=== PATIENT | female | born 1975 | race Asian ===

== ENCOUNTER 2018-09-14 00:47 | Emergency (ER) | payer SELFPAY ==
[~2018-09-14] VITALS: Ht 165.1 cm; Wt 59.9 kg
[2018-09-14 00:47] VITALS: BP 155/75
--- NOTE | 2018-09-14 05:04 | PHYS DOC ---
Past Medical History Past Medical History: Bipolar Past Surgical History: Cholecystectomy, Hysterectomy, Tubal ligation Additional Past Surgical Histo: hernia Alcohol Use: Occasionally Drug Use: Marijuana Adult General Chief Complaint Chief Complaint: PSYCH EVALUATION HPI HPI Patient is a 43 year old female who presents with reports of concern for suicidal ideation. Patient apparently been fighting with her boyfriend who lives out of state states that and made statements that she did not want to put up with him anymore. Reportedly, this led the patient's boyfriend contacted the police for a well being check. Patient did not take any statements to the police but agreed to come to the ED for assessment. Patient denies HI, SI, paranoia, delusions and hallucinations. Denies drugs and alcohol. Patient states she just wanted to break from her boyfriend and states she did not make any statements threatening to harm herself. No other acute symptoms or complaints.[] Review of Systems Review of Systems ROS as per HPI [] All other systems were reviewed and found to be within normal limits, except as documented in this note. Allergies Allergies Allergies Coded Allergies Type Severity Reaction Last Updated Verified No Known Drug Allergies 09/14/18 No Physical Exam Physical Exam Constitutional: Well developed, well nourished, no acute distress, non-toxic appearance. [] HENT: Normocephalic, atraumatic, bilateral external ears normal, oropharynx moist, no oral exudates, nose normal. [] Eyes: PERRLA, EOMI, conjunctiva normal, no discharge. [] Neck: Normal range of motion, no tenderness. [] Cardiovascular:Heart rate regular rhythm, no murmur. [] Lungs & Thorax: Bilateral breath sounds clear to auscultation. [] Abdomen: Bowel sounds normal, soft, no tenderness. [] Skin: Warm, dry, no erythema, no rash. [] Back: No tenderness. [] Extremities: No tenderness, no edema. [] Neurologic: Alert and oriented X 3, normal motor function, normal sensory function, no focal deficits noted. [] Psychologic: Affect normal, judgement normal, mood normal. [] Current Patient Data Vital Signs Vital Signs Date Time Temp Pulse Resp B/P (MAP) Pulse Ox O2 Delivery O2 Flow Rate FiO2 09/14/18 00:47 98.4 84 16 155/75 (101) 97 Room Air 98.4 EKG EKG [] Radiology/Procedures Radiology/Procedures [] Course & Med Decision Making Course & Med Decision Making Pertinent Labs and Imaging studies reviewed. (See chart for details) [Patient for psychiatric support services which she declined. She denies any thoughts of harm to herself or others. She is not intoxicated this forthright with answering all questions. She states she plans in a hotel and sleep after leaving the ED. Outpatient resources provided. Return precautions reviewed.] Dragon Disclaimer Dragon Disclaimer This electronic medical record was generated, in whole or in part, using a voice recognition dictation system. Departure Departure Impression: Primary Impression: Examination, medical, general Disposition: 01 HOME, SELF-CARE Condition: GOOD Referrals: JOSUE WOODS (PCP) Patient Instructions: Medical Screening Exam Additional Instructions: Please follow up with [facility] and a local primary care provider. NELLY CORNELL DO Sep 14, 2018 05:04
== END 2018-09-14 01:35 | disposition home or self-care (01) ==
LOC: ER 00:47
DX: Z00.8 Encounter for other general examination (principal); F31.9 Bipolar disorder, unspecified; Z90.49 Acquired absence of other specified parts of digestive tract; Z90.710 Acquired absence of both cervix and uterus; Z98.51 Tubal ligation status
CPT/HCPCS: 99281